=== PATIENT | male | born 1980 | race Caucasian/White ===

== ENCOUNTER 2018-12-19 21:17 | Emergency (ER) | payer BC ==
[2018-12-19 21:36] VITALS: BP 120/84
--- NOTE | 2018-12-19 21:46 | UC ---
UC General HPI - HPI Summary HPI Summary: 38-year-old male 38-year-old male comes in with a chief complaint of swelling of both ankles comes in with a chief complaint of swelling of both ankles. He noticed today. He has not noticed it previously. He has no chest pain no shortness of breath no abdominal pain no flank pain. Feels well otherwise. He doesn't believe that he ingested more salt than usual are was standing more than usual. Overall the weather has been warm but he reports having been inside at work mostly today. No prior history of edema. - History of Current Complaint Chief Complaint: UCGeneralIllness Stated Complaint: BILATERAL ANKLE SWELLING Time Seen by Provider: 12/19/18 21:33 Pain Intensity: 0 - Allergy/Home Medications Allergies/Adverse Reactions: Allergies Allergy/AdvReac Type Severity Reaction Status Date / Time No Known Allergies Allergy Verified 12/19/18 21:36 PMH/Surg Hx/FS Hx/Imm Hx Previously Healthy: Yes - Surgical History Surgical History: None - Family History Known Family History: Positive: Non-Contributory - Social History Alcohol Use: Weekly Alcohol Amount: 4 drinks weekly Substance Use Type: None Smoking Status (MU): Never Smoked Tobacco - Immunization History Most Recent Influenza Vaccination: March 2015 Review of Systems All Other Systems Reviewed And Are Negative: Yes Constitutional: Positive: Negative Skin: Positive: Negative Eyes: Positive: Negative ENT: Positive: Negative Respiratory: Positive: Negative Cardiovascular: Positive: Negative Gastrointestinal: Positive: Negative Genitourinary: Positive: Negative Motor: Positive: Negative Neurovascular: Positive: Negative Musculoskeletal: Positive: Edema Neurological: Positive: Negative Psychological: Positive: Negative Is Patient Immunocompromised?: No Physical Exam Triage Information Reviewed: Yes Appearance: Well-Appearing, No Pain Distress, Well-Nourished Vital Signs: Initial Vital Signs Temp 98.6 F 12/19/18 21:33 Pulse 93 12/19/18 21:33 Resp 16 12/19/18 21:33 BP 120/84 12/19/18 21:33 Pulse Ox 99 12/19/18 21:33 Vital Signs Reviewed: Yes Eye Exam: Normal Eyes: Positive: Conjunctiva Clear Neck: Positive: Supple Respiratory: Positive: Lungs clear, Normal breath sounds, No respiratory distress Cardiovascular: Positive: RRR Abdomen Description: Positive: Nontender, Soft Musculoskeletal: Positive: Strength Intact, ROM Intact, Edema @ - B/L ANKLES PITTING, Other: - NO CALF TENDERNESS. NL CAP REFILL. NL SENSATION Neurological: Positive: Alert, Muscle Tone Normal Psychological Exam: Normal Psychological: Positive: Age Appropriate Behavior Skin Exam: Normal Course/Dx - Course Course Of Treatment: CBC AND CMP DRAWN. PT FEELS WELL, NO SOB. NL LUNG EXAM. 1 WEEK HCTZ 25MG PO Q AM. F/U PMD THIS WEEK. REEVAL SOONER IF WORSE. - Diagnoses Provider Diagnosis: Pedal edema Discharge - Sign-Out/Discharge Documenting (check all that apply): Patient Departure All imaging exams completed and their final reports reviewed: No Studies - Discharge Plan Condition: Stable Disposition: HOME Prescriptions: Hydrochlorothiazide TAB* [Hydrodiuril TAB*] 25 mg PO DAILY #7 tab Patient Education Materials: Leg Edema (ED) Referrals: STEPHEN Manzano [Primary Care Provider] - Additional Instructions: FOLLOW UP WITH YOUR PRIMARY CARE DOCTOR THIS WEEK. GET RECHECKED SOONER IF YOUR CONDITION WORSENS; SHORTNESS OF BREATH, YOU FEEL ILL OR ANY QUESTIONS OR CONCERNS. - Billing Disposition and Condition Condition: STABLE Disposition: Home
[2018-12-20 14:06] LABS: ABS Basophils 0.1 10^3/ul (0-0.2); ABS Eosinophils 0.4 10^3/ul (0-0.6); ABS Lymphocytes 1.4 10^3/ul (1.0-4.8); ABS Monocytes 0.9 10^3/ul (0-0.8); ABS Neutrophils 4.1 10^3/ul (1.5-7.7); Eosinophil % 5.5 %; Hematocrit 38 % (42-52); Hemoglobin 12.5 g/dL (14.0-18.0); Lymphocyte % 20.6 %; Mean Corpuscular HGB Conc 33 g/dL (31-36); Mean Corpuscular Hemoglobin 27 pg (27-31); Mean Corpuscular Volume 81 fL (80-94); Nucleated Red Blood Cells % 0.2; Platelet Count 190 10^3/uL (150-450); Red Blood Count 4.66 10^6 /uL (4.18-5.48); Red Cell Distribution Width 16 % (10-15); White Blood Count 6.9 10^3/uL (3.5-10.8)
[2018-12-20 14:12] LABS: Albumin 3.8 g/dL (3.2-5.2); Calcium 9.2 mg/dL (8.6-10.3); Potassium 4.1 mmol/L (3.5-5.0); Total Bilirubin 0.5 mg/dL (0.2-1.0)
[2018-12-20 14:18] LABS: Albumin/Globulin Ratio 1.7 (1-3); BUN/Creatinine Ratio 13.2 (8-20); EGFR African American 95.1 (>60); EGFR Non-African American 78.6 (>60); Globulin 2.3 g/dL (2-4); Total Protein 6.1 g/dL (6.4-8.9)
--- NOTE | 2018-12-21 07:15 | UC ---
- Progress Note Progress Note: Laboratory results from December 19, 2018 comes back. Patient was seen here for pedal edema. Patient is slightly anemic with a hemoglobin of 12.5. Normal ranges 14-18. ALT and AST are slightly elevated at 64 and 53 respectively. Normal ranges her 7-52 and 13-39 respectively. Kidney function is normal. Nursing to call patient inform him that his kidney function is normal and he does have mild anemia and mild the elevated LFTs. Results are concerning at this time but he should plan to follow up with his primary care physician this week. Course/Dx - Diagnoses Provider Diagnoses: Pedal edema Discharge - Sign-Out/Discharge Documenting (check all that apply): Patient Departure All imaging exams completed and their final reports reviewed: No Studies - Discharge Plan Condition: Stable Disposition: HOME Prescriptions: Hydrochlorothiazide TAB* [Hydrodiuril TAB*] 25 mg PO DAILY #7 tab Patient Education Materials: Leg Edema (ED) Referrals: STEPHEN Manzano [Medical Doctor] - Additional Instructions: FOLLOW UP WITH YOUR PRIMARY CARE DOCTOR THIS WEEK. GET RECHECKED SOONER IF YOUR CONDITION WORSENS; SHORTNESS OF BREATH, YOU FEEL ILL OR ANY QUESTIONS OR CONCERNS. - Billing Disposition and Condition Condition: STABLE Disposition: Home
== END 2018-12-19 22:14 | disposition home or self-care (01) ==
LOC: UCCORT 21:17
DX: R60.9 Edema, unspecified (principal)
CPT/HCPCS: 36415; 80053; 85025; 99202; G0463